=== PATIENT | male | born 1985 | race Asian ===

== ENCOUNTER 2022-12-01 05:30 | Emergency (ER) | payer OTHER ==
[~2022-12-01] VITALS: Ht 172.7 cm; Wt 74.8 kg
[2022-12-01 10:04] LABS: PLATELET COUNT 331 K/uL (142-355)
[2022-12-01 10:14] LABS: POTASSIUM 3.3 mmol/L (3.6-5.2); SODIUM 142 mmol/L (136-145)
[2022-12-01 15:14] LABS: POTASSIUM 3.6 mmol/L (3.6-5.2)
[2022-12-02 14:00] VITALS: BP 136/91; TEMP 99
== END 2022-12-03 08:30 | disposition still patient (30) ==
LOC: ED 05:30
PROVIDERS: Family Medicine
DX: R44.0 Auditory hallucinations (principal); F19.90 Other psychoactive substance use, unspecified, uncomplicated; E87.6 Hypokalemia; F22 Delusional disorders; F17.210 Nicotine dependence, cigarettes, uncomplicated
CPT/HCPCS: 80048; 80053; 80143; 80179; 80307; 80320; 81000; 85027; 99285